=== PATIENT | male | born 1955 | race Caucasian/White ===

== ENCOUNTER 2020-10-11 16:29 | Emergency (ER) | payer OTHER ==
[~2020-10-11] VITALS: Ht 190.5 cm; Wt 103.0 kg
[~2020-10-11 16:29] MED LIST: ATOR20TA PO; LORA10TA19 PO; NAPR-1003 PO; RANI-287 PO; TRI48 PO
[2020-10-11 16:36] VITALS: BP 175/107
--- NOTE | 2020-10-11 16:57 | NUR ---
pt ambulated to bed 09.
--- NOTE | 2020-10-11 17:00 | NUR ---
EMT at bedside for EKG.
--- NOTE | 2020-10-11 17:32 | NUR ---
Note undone in EDM - 10/11/20 at 1739 by MEDPMR 64 Y/O M BIB SELF FROM HOME, PATIENT PRESENTS TO ED WITH KAHN, CHEST PAIN RADIATING TO NECK. PT STATES HE WOKE UP LAST NIGHT AND STARTED FEELING DIZZY AND OFF BALANCE WHEN STANDING. DENIES N/V/D, SYNCOPE, FALL, OR HEAD INJURY; SKIN IS PINK/WARM/DRY; AAOX4 WITH EVEN AND STEADY GAIT; LUNGS CLEAR BL; HR EVEN AND REGULAR; PT DENIES ANY FEVER, CP, SOB, OR COUGH AT THIS TIME; PATIENT STATES PAIN OF 9/10 AT THIS TIME; VSS; PATIENT POSITIONED FOR COMFORT; HOB ELEVATED; BEDRAILS UP X2; BED DOWN. ER MD MADE AWARE OF PT STATUS. PMH: ASTHMA, HIGH CHOLESTEROL ALLERGY: ACETAMINOPHEN MED: DENIES
--- NOTE | 2020-10-11 17:39 | NUR ---
64 Y/O M BIB SELF FROM HOME, PATIENT PRESENTS TO ED WITH KAHN, CHEST PAIN RADIATING TO NECK. PT STATES HE WOKE UP LAST NIGHT AND STARTED FEELING DIZZY AND OFF BALANCE WHEN STANDING. DENIES N/V/D, SYNCOPE, FALL, OR HEAD INJURY; SKIN IS PINK/WARM/DRY; AAOX4 WITH EVEN AND STEADY GAIT; LUNGS CLEAR BL; HR EVEN AND REGULAR; PT DENIES ANY FEVER, SOB, OR COUGH AT THIS TIME; PATIENT STATES PAIN OF 9/10 AT THIS TIME; PATIENT POSITIONED FOR COMFORT; HOB ELEVATED; BEDRAILS UP X2; BED DOWN. ER MD MADE AWARE OF PT STATUS. PMH: ASTHMA, HIGH CHOLESTEROL ALLERGY: ACETAMINOPHEN MED: DENIES
[2020-10-11] MEDS ORDERED: MECLIZINE 25 MG TAB PO ONE (17:45)
[2020-10-11] MEDS ORDERED: MECL-231 PO ×2 (18:12→20:14)
[2020-10-11 18:17] LABS: BASOPHILS # (AUTO) 0.1 K/uL (0.00-0.22); EOSINOPHILS # (AUTO) 0.1 K/uL (0-0.4); HEMATOCRIT 43.8 % (36-52); HEMOGLOBIN 14.7 g/dL (12.0-18.0); MEAN CORPUSCULAR HEMOGLOBIN 29 pg (27-31); MEAN CORPUSCULAR HGB CONC 34 g/dL (33-37); MEAN CORPUSCULAR VOLUME 85.8 fL (80-94); MONOCYTES # (AUTO) 0.6 K/uL (0.8-1.0); MONOCYTES % (AUTO) 8.4 % (1.7-9.3); NEUTROPHILS # (AUTO) 4.5 K/uL (1.8-7.7); NEUTROPHILS % (AUTO) 61.6 % (42.2-75.2); PLATELET COUNT (AUTO) 222 K/uL (140-450); RED BLOOD CELL COUNT(AUTO) 5.11 MIL/uL (4.20-6.10); RED CELL DISTRIBUTION WIDTH 14.2 % (11.6-13.7); WHITE BLOOD COUNT (AUTO) 7.4 K/uL (4.8-10.8)
[2020-10-11 18:28] LABS: ALBUMIN 3.9 g/dL (3.4-5.0); ANION GAP 12.6 (8-16); CARBON DIOXIDE 28.1 mmol/L (21-32); CREATININE 0.7 mg/dL (0.6-1.3); POTASSIUM 3.7 mmol/L (3.5-5.1); TOTAL BILIRUBIN 0.3 mg/dL (0.0-1.0)
[2020-10-11 19:05] VITALS: BP 160/90
== END 2020-10-11 19:05 | disposition home or self-care (01) ==
LOC: MED 16:29
DX: H81.10 Benign paroxysmal vertigo, unspecified ear (principal); J45.909 Unspecified asthma, uncomplicated; E78.00 Pure hypercholesterolemia, unspecified
CPT/HCPCS: 36415; 71045; 80053; 84484; 85025; 93005; 99285; J8597